=== PATIENT | female | born 1995 | race Caucasian/White ===

== ENCOUNTER 2017-03-13 10:01 | Emergency (ER) | payer MEDICAID, OTHER ==
[~2017-03-13] VITALS: Ht 162.6 cm; Wt 78.9 kg
[~2017-03-13 10:01] MED LIST: FERR240T9 PO; FOL8 PO; PRENAT PO
[2017-03-13 10:03] VITALS: Ht 162.6 cm; Wt 78.9 kg
[2017-03-13] MEDS ORDERED: KETOROLAC 60 MG INJ IM STA (10:48)
[2017-03-13 10:53] LABS: URINE BLOOD (Dip) POC Negative (NEGATIVE)
[2017-03-13] MEDS ORDERED: NAPR-260 PO (11:01)
[2017-03-13] MEDS ORDERED: ONDA4TAB8 PO (11:01)
--- NOTE | 2017-03-13 11:17 | ERD ---
ER Documentation Chief Complaint Date/Time DATE: 03/13/17 TIME: 11:12 Chief Complaint oquendo x 1 week HPI This is a 21-year-old female that presents to the ER with a headache for the last week. Patient states headache starts at her forehead and wraps around her head like a head band. Headache can last anywhere from 1-3 hours. Headache is intermittent. Patient has been ibuprofen however headache always returns. Headache is described as pressure-like it is worse whenever she moves her head or bends forward. She did experience minor nausea however has not had any vomiting or diarrhea. She denies any vision loss, blurry vision. She denies any head trauma. Denies any dizziness or loss of consciousness. ROS 12 point review of systems was done, all negative except per HPI. Medications Home Meds Active Scripts Ondansetron Hcl* (Zofran*) 4 Mg Tablet, 4 MG PO Q6H for NAUSEA AND/OR VOMITING, #10 TAB Prov:MEENU PARDO 03/13/17 Naproxen* (Naprosyn*) 500 Mg Tablet, 500 MG PO BID Y for PAIN AND/OR INFLAMMATION, #30 TAB Prov:MEENU PARDO 03/13/17 Reported Medications Folic Acid* (Folic Acid*) 0.8 Mg Tablet, 0.8 MG PO DAILY, TAB 05/06/16 Ferrous Gluconate (Iron) 1 Tab Tablet, 1 TAB PO DAILY, TAB 05/06/16 Multivit/Min/Fol Ac/Iron/Pren* ( S*) 1 Tab Tab, 1 TAB PO DAILY, TAB 05/06/16 Allergies Allergies: Coded Allergies: No Known Allergy (Unverified , 05/31/16) PMhx/Soc Medical and Surgical Hx: pt denies Medical Hx, pt denies Surgical Hx Hx Alcohol Use: No Hx Substance Use: No Hx Tobacco Use: No Physical Exam Vitals Vital Signs Date Time Temp Pulse Resp B/P Pulse Ox O2 Delivery O2 Flow Rate FiO2 03/13/17 10:03 97.8 79 18 125/63 99 Physical Exam GENERAL: The patient is well developed and appropriate for usual state of health , in no apparent distress. HEENT: Atraumatic. Conjunctivae are pink. Pupils equal, round, and reactive to light. Extraocular muscles are grossly intact. Bilateral tympanic membranes are clear with no evidence of erythema, bulging or perforation. No sinus tenderness. NECK: C-spine is soft and supple. There is no cervical lymphadenopathy. CHEST: Clear to auscultation bilaterally. There are no rales, wheezes or rhonchi. HEART: Regular rate and rhythm. No murmurs, clicks, rubs or gallops. EXTREMITIES: Equal pulses bilaterally. There is no peripheral clubbing, cyanosis or edema. No focal swelling or erythema. Full range of motion. Grossly neurovascularly intact. NEURO: Alert and oriented. Cranial nerves II through XII are intact. Motor strength in all 4 extremities with 5/5 strength. Sensation grossly intact. Normal speech and gait. Negative Rhomberg. +2 DTRs. SKIN: There is no apparent rash or petechia. The skin is warm and dry. Results 24 hrs Laboratory Tests Test 03/13/17 10:55 Bedside Urine pH (LAB) 6.0 Bedside Urine Protein (LAB) 1+ Bedside Urine Glucose (UA) Negative Bedside Urine Ketones (LAB) 1+ Bedside Urine Blood Negative Bedside Urine Nitrite (LAB) Negative Bedside Urine Leukocyte Esterase (L Negative Current Medications Medications (Trade) Dose Ordered Sig/Gera Route PRN Reason Start Time Stop Time Status Last Admin Dose Admin Ketorolac Tromethamine (Toradol) 60 mg ONCE STAT IM 03/13/17 10:48 03/13/17 10:49 DC 03/13/17 10:54 Procedures/MDM Differential Diagnosis includes but is not limited to; tension headache, migraine headache, cluster headache, sinus headache, nonspecific febrile headache, trigeminal neurologia, subdural hematoma, subarachnoid bleeding, meningitis, encephalitis. Patient is neurologically intact with no focal neurological deficits. This is likely a tension headache, patient describes a typical hatband headache. At this time patient is afebrile and well-appearing I doubt intracranial pathology such as intracranial bleed or atrial venous malformation. Patient will be sent home with naproxen and with Zofran. She is to follow-up with her primary care doctor within 1-2 days or return to ER sooner if symptoms worsen. My medical decision making was shared with the patient she understands and agrees with plan. Departure Diagnosis: Primary Impression: Headache Condition: Stable Patient Instructions: Self-Care for Headaches Referrals: LU[facility]S RESTREPO (PCP) Additional Instructions: Call your primary care doctor TOMORROW for an appointment during the next 1-2 days.See the doctor sooner or return here if your condition worsens before your appointment time. MEENU PARDO March 13, 2017 11:17
== END 2017-03-13 11:10 | disposition home or self-care (01) ==
LOC: FTE 10:01
DX: R51 Headache (principal); R11.0 Nausea
CPT/HCPCS: 81003; 96372; J1885; Z7502